=== PATIENT | male | born 1940 | race Caucasian/White ===

== ENCOUNTER 2020-10-17 05:48 | Inpatient (IN) ==
[2020-10-17] MEDS ORDERED: IOPAMIDOL 100 ML BOTTLE IV ONE (05:49)
[2020-10-17] MEDS ORDERED: IPRATROPIUM/ALBUTEROL 3 ML AMPUL.NEB NEB ONE (05:55)
[2020-10-17] MEDS ORDERED: methylPREDNISolone SOD SUCC 125 MG/2 ML VIAL IV ONE (05:55)
[2020-10-17] MEDS ORDERED: FUROSEMIDE 40 MG/4 ML VIAL IV ONE (06:09)
--- NOTE | 2020-10-17 06:12 | Emergency Department Note ---
HPI General Chief complaint: Shortness of Breath/Dyspnea Stated complaint: sob Time Seen by Provider: 10/17/20 05:55 Source: patient Mode of arrival: ambulatory Limitations: no limitations History of Present Illness HPI Narrative: Narrative: 80-year-old male presents the emergency department with shortness of breath. He does have history of CHF as well as COPD and obstructive sleep apnea. He said over the last 2 days he had worsening shortness of breath whenever he seems to not be L to catch his breath. He says he does not normally use oxygen at home and has never had before. She does have inhalers at home that he states had no fevers chills nausea vomiting chest pain. Says just the shortness of breath the only thing bothering him. He does not believe to have fever. They recently received their second Covid vaccine approximately 3 days ago. Otherwise there is been no other symptoms. He has no pain at this time. They have noticed increased swelling in his lower limbs as well. Related Data Home Medications Medication Instructions Recorded Confirmed aspirin 81 mg tablet,delayed 81 mg PO QDAY 08/08/17 07/06/20 release multivitamin 1 tab PO QAM 08/08/17 07/06/20 omeprazole 20 mg capsule,delayed 20 mg PO QDAY 08/08/17 07/06/20 release acetaminophen 500 mg tablet 500 mg PO Q4H PRN 04/11/19 07/06/20 albuterol sulfate 90 mcg/actuation 2 puff INHALATION QID PRN 04/11/19 07/06/20 aerosol inhaler ascorbic acid (vitamin C) 1,000 mg 1 g PO QAM tab 04/11/19 07/06/20 tablet formoterol fumarate 20 mcg/2 mL 2 ml INHALATION BID ml 04/11/19 07/06/20 solution for nebulization metoprolol tartrate 100 mg tablet 100 mg PO BID 04/11/19 07/06/20 nitroglycerin 0.4 mg sublingual 0.4 mg SUBLINGUAL Q5-15M PRN 04/11/19 07/06/20 tablet omega-3 fatty acids 1,000 mg 1,000 mg PO QDAY 04/11/19 07/06/20 capsule amlodipine 10 mg tablet 10 mg PO QDAY tab 01/02/20 07/06/20 atorvastatin 20 mg tablet 20 mg PO QDAY tab 01/02/20 07/06/20 budesonide-formoterol HFA 160 2 puff INHALATION BID 01/02/20 07/06/20 mcg-4.5 mcg/actuation aerosol inhaler doxazosin 2 mg tablet 2 mg PO QHS 01/02/20 07/06/20 furosemide 40 mg tablet 40 mg PO BID 01/02/20 07/06/20 Previous Rx's Medication Instructions Recorded fluticasone propionate 50 1 - 2 spray INTRANASAL QDAY #54.6 01/14/20 mcg/actuation nasal ml spray,suspension losartan 100 mg tablet 100 mg PO QDAY #90 tab 07/06/20 Allergies Allergy/AdvReac Type Severity Reaction Status Date / Time No Known Drug Allergies Allergy Verified 07/06/20 13:31 Review of Systems ROS ROS Narrative: Narrative: All systems ED: reviewed and negative except as stated. [facility] Narrative Patient History Narrative: Narrative: Medical/Surgical/Family History All Active Problems (Updated 10/17/20 @ 09:02 by Toro Wright DO) Acute exacerbation of CHF (congestive heart failure) (Acute) Acute exacerbation of chronic obstructive pulmonary disease (Acute) Abdominal pain (Acute) Nausea (Acute) Medicare annual wellness visit, subsequent (Acute) Prediabetes (Chronic) Former smoker (Chronic) JOSIE (obstructive sleep apnea) (Chronic) Morbid obesity (Chronic) Erectile dysfunction (Chronic) History of bone marrow transplant (Chronic ~2003) CHF (congestive heart failure) (Chronic) Myelodysplastic syndrome (Chronic) Myelodysplastic disease (Chronic) Hypertension (Chronic) History of colonoscopy (Chronic 02/21/18) Avghd-zydawr-bpcm disease (Chronic) COPD (chronic obstructive pulmonary disease) (Chronic) Stenosis of coronary artery stent, subsequent encounter (Chronic) Hyperlipidemia (Chronic) Diverticulosis of colon (without mention of hemorrhage) (Chronic) Colonic polyp (Chronic) Arthritis (Chronic) Insomnia (Chronic) Medical History (Updated 10/17/20 @ 09:02 by Toro Wright DO) Abscess, scrotum Acute coronary syndrome Arthritis CHF (congestive heart failure) Colonic polyp COPD (chronic obstructive pulmonary disease) Cyst of scrotum Diverticulosis of colon (without mention of hemorrhage) Drug reaction Encounter for long-term (current) use of medications Erectile dysfunction Former smoker 56 yrs; quit 2003 Kpxud-jvrsjj-lmjl disease Hyperlipidemia Hypertension Impingement syndrome of right shoulder Insomnia Laceration with foreign body of scrotum and testes, initial encounter Morbid obesity Myelodysplastic disease Myelodysplastic syndrome JOSIE (obstructive sleep apnea) presumptive - high likelihood based on obesity, describes gasping at night, some snoring. Prediabetes Stenosis of coronary artery stent, subsequent encounter Surgical History H/O excision of dermoid cyst Scrotal H/O heart artery stent (~07/2017) History of biopsy Heart biopsy History of bone marrow transplant (~2003) History of colonoscopy (02/21/18) History of hernia repair History of lung biopsy History of surgery stent in chest for drainage Hx of tonsillectomy S/P appendectomy S/P knee replacement Family History Other Cancer Diabetes Heart attack Hypertension No pertinent family history Social History Smoking Status: Former smoker Alcohol Intake Frequency: does not drink Substance Use: does not use Exam Narrative Narrative: Narrative: Vital signs noted General: Awake. Alert. No distress. Skin: Warm. Dry. No rash. HEENT: NCAT. PERRL. EOMI. No conjunctivitis. No nystagmus. No pharyngitis. Membranes moist. No otitis. No rhinitis. Neck: No PTP. Good ROM. No meningeal signs. No stridor. No thyromegaly. No JVD. Cardiovascular: RRR. No murmur. No rubs. No gallops. Respiratory: No respiratory distress. Mild wheezes worse in the bases bilaterally. No rhonchi. No rales. Gastrointestinal: Abdomen soft. No tenderness. No distention. Normal bowel sounds. No palpable organomegaly or masses. Back: No deformity. No CVAT. Musculoskeletal: No tenderness. 2+ pretibial pitting edema bilaterally. No erythema. No edema. Good peripheral pulses x 4 Lymphatic: No palpable adenopathy. Neurological: No focal neurological deficits observed. General Limitations: no limitations Course Vital Signs Vital signs: Vital Signs Temperature 96.9 F L 10/17/20 05:49 Pulse Rate 107 H 10/17/20 05:49 Respiratory Rate 24 H 10/17/20 05:49 Blood Pressure 175/104 10/17/20 05:49 Pulse Oximetry (%) 86 L 10/17/20 05:49 Temperature 96.9 F L 10/17/20 05:49 Pulse Rate 97 H 10/17/20 08:31 Respiratory Rate 23 H 10/17/20 08:31 Blood Pressure 132/94 10/17/20 07:46 Pulse Oximetry (%) 99 10/17/20 08:31 MDM MDM Narrative Medical decision making narrative: Narrative: Patient seems to be possibly in COPD and CHF exacerbation. We will going give him 125 of Solu-Medrol for inflammation for the COPD as well as DuoNeb's to help with his breathing. Also given Lasix to help diurese him. We will get basic labs. Will get D-dimer as he was tachycardic and hypoxic to rule out pulmonary embolism. EKG was done shows A. fib which is chronic for him otherwise no other signs of ischemia. Patient did have an elevated BNP of 3000. Troponin negative. No white count procalcitonin was negative. D-dimer was elevated to 100 so I went ahead and did order a CT angiogram of the chest which showed pleural effusions but no signs of pulmonary embolism or signs of pneumonia. The did not treat patient with antibiotics. He did get up one time and desatted down to 80 became more short of breath after that with the CHF exacerbation side to start him on BiPAP. Since being on BiPAP patient has been doing much better. He responded well to it. Due to being on BiPAP as well as receiving the Lasix including the COPD exacerbation I think patient does need to be admitted for further evaluation. Think this is more of a CHF exacerbation more than a COPD exacerbation I think he just needs a lot of diuresis and possibly medication changes. Patient needs to be admitted. I will speak with the hospitalist Dr. Be to accept the patient. Patient is going to be admitted in fair condition. Total critical care time of 32 min including performance of history and physical exam, review of results, re-examinations, time spent documenting, night order selector, review of old records, discussions with patient and family, discussions with software consultant(s), discussion with admitting physician, completion of admission/transfer paperwork. This does not include time for any separately documented procedures. Lab Data Result diagrams: 10/17/20 06:00 10/17/20 06:00 Labs: Lab Results 10/17/20 10/17/20 10/17/20 Range/Units 06:00 06:00 06:00 WBC 7.5 (4.5-11.0) K/mcL RBC 4.77 (4.50-5.90) M/mcL Hgb 14.7 (13.5-16.5) g/dL Hct 46.2 (41.0-55.0) % MCV 96.9 (80.0-100.0) fL MCH 30.8 (26.0-34.0) pg MCHC 31.8 (31.0-36.0) g/dL RDW 13.1 (11.5-14.5) % Plt Count 160 (140-440) K/mcL MPV 9.7 (7.4-10.4) fL Neut % (Auto) 64.0 (38.0-78.0) % Lymph % (Auto) 24.7 (15.0-49.0) % Elbert % (Auto) 9.3 (1.0-12.0) % Eos % (Auto) 1.2 (0.0-7.0) % Baso % (Auto) 0.8 (0.0-2.0) % Lymph # (Auto) 1.86 (1.50-4.80) K/mcL Elbert # (Auto) 0.70 (0.10-0.90) K/mcL Eos # (Auto) 0.09 (0.00-0.70) K/mcL Baso # (Auto) 0.06 (0.00-0.20) K/mcL Absolute Neutrophils 4.81 (1.80-8.00) K/mcL PT 13.7 (11.9-14.5) sec INR 1.0 (0.9-1.1) D-Dimer 1.19 H (0.27-0.50) ug/mL Sodium 139 (133-145) mmol/L Potassium 4.2 (3.3-5.1) mmol/L Chloride 106 (96-108) mmol/L Carbon Dioxide 25 (22-30) mmol/L Anion Gap 8.0 (8.0-16.0) BUN 14 (8-23) mg/dL Creatinine 0.9 (0.7-1.2) mg/dL GFR Calculation 81 Glucose 155 H (70-105) mg/dL Calcium 8.5 L (8.6-10.4) mg/dL Total Bilirubin 1.7 H (0.1-1.0) mg/dL AST 15 (<40) U/L ALT 14 (<40) U/L Alkaline Phosphatase 96 (39-117) U/L Troponin T (<0.03) ng/mL NT-Pro-B Natriuret Pep 3003.0 H (<450.0) pg/mL Total Protein 5.8 L (5.9-8.4) gm/dL Albumin 3.5 (3.2-5.2) gm/dL Globulin 2.3 (2.2-3.7) gm/dL Albumin/Globulin Ratio 1.5 (1.0-2.3) Procalcitonin (<0.10) ng/mL 10/17/20 10/17/20 Range/Units 06:00 06:00 WBC (4.5-11.0) K/mcL RBC (4.50-5.90) M/mcL Hgb (13.5-16.5) g/dL Hct (41.0-55.0) % MCV (80.0-100.0) fL MCH (26.0-34.0) pg MCHC (31.0-36.0) g/dL RDW (11.5-14.5) % Plt Count (140-440) K/mcL MPV (7.4-10.4) fL Neut % (Auto) (38.0-78.0) % Lymph % (Auto) (15.0-49.0) % Elbert % (Auto) (1.0-12.0) % Eos % (Auto) (0.0-7.0) % Baso % (Auto) (0.0-2.0) % Lymph # (Auto) (1.50-4.80) K/mcL Elbert # (Auto) (0.10-0.90) K/mcL Eos # (Auto) (0.00-0.70) K/mcL Baso # (Auto) (0.00-0.20) K/mcL Absolute Neutrophils (1.80-8.00) K/mcL PT (11.9-14.5) sec INR (0.9-1.1) D-Dimer (0.27-0.50) ug/mL Sodium (133-145) mmol/L Potassium (3.3-5.1) mmol/L Chloride (96-108) mmol/L Carbon Dioxide (22-30) mmol/L Anion Gap (8.0-16.0) BUN (8-23) mg/dL Creatinine (0.7-1.2) mg/dL GFR Calculation Glucose (70-105) mg/dL Calcium (8.6-10.4) mg/dL Total Bilirubin (0.1-1.0) mg/dL AST (<40) U/L ALT (<40) U/L Alkaline Phosphatase (39-117) U/L Troponin T < 0.01 (<0.03) ng/mL NT-Pro-B Natriuret Pep (<450.0) pg/mL Total Protein (5.9-8.4) gm/dL Albumin (3.2-5.2) gm/dL Globulin (2.2-3.7) gm/dL Albumin/Globulin Ratio (1.0-2.3) Procalcitonin 0.07 (<0.10) ng/mL ED POC Tests ED POC Tests: MIESHA - SARS Antigen Negative EKG Data EKG #1: EKG results narrative: EKG done at 0 556 interpreted by myself shows A. fib at a rate of 95, QRS 102, QTc 430. There is no acute ST changes no acute T wave changes no other signs of ischemia. No signs of hypertrophy, heart strain, heart block. No WPW/Brugada/HOCM. Impression is A. fib with no ischemia. Discharge Plan Patient/Caregiver Discharge Instructions Pt seen by TALENT ACQUISITION PROGRAM MANAGER/PA only: No Clinical Impression: Acute exacerbation of CHF (congestive heart failure), Acute exacerbation of chronic obstructive pulmonary disease Patient Disposition: Xfer As Inpt ([facility]) Condition: Good Follow up with: Reynaldo Castañeda MD [Primary Care Provider] - Prescriptions: No Action budesonide-formoterol 160-4.5 mcg/actuation HFA aerosol inhaler 2 puff INHALATION BID RF: 0 doxazosin 2 mg tablet 2 mg PO QHS RF: 0 furosemide 40 mg tablet 40 mg PO BID RF: 0 losartan 100 mg tablet 100 mg PO QDAY Qty: 90 RF: 4 fluticasone propionate 50 mcg/actuation spray,suspension 1 - 2 spray INTRANASAL QDAY Qty: 54.6 RF: 4 metoprolol tartrate 100 mg tablet 100 mg PO BID RF: 0 Perforomist 20 mcg/2 mL solution for nebulization 2 ml INHALATION BID RF: 0 omega-3 fatty acids 1,000 mg capsule 1,000 mg PO QDAY RF: 0 acetaminophen [Tylenol Extra Strength] 500 mg tablet 500 mg PO Q4H PRN (Reason: Pain) RF: 0 ascorbic acid (vitamin C) 1,000 mg tablet 1 g PO QAM RF: 0 nitroglycerin [Nitrostat] 0.4 mg tablet, sublingual 0.4 mg SUBLINGUAL Q5-15M PRN (Reason: Chest Pain) RF: 0 albuterol sulfate [ProAir HFA] 90 mcg/actuation HFA aerosol inhaler 2 puff INHALATION QID PRN (Reason: Shortness Of Breath) RF: 0 atorvastatin 20 mg tablet 20 mg PO QDAY RF: 0 omeprazole 20 mg capsule,delayed release(DR/EC) 20 mg PO QDAY RF: 0 multivitamin [Daily Multi-Vitamin] tablet 1 tab PO QAM RF: 0 aspirin 81 mg tablet,delayed release (DR/EC) 81 mg PO QDAY RF: 0 amlodipine 10 mg tablet 10 mg PO QDAY RF: 0
[2020-10-17 06:35] LABS: Basophils # (Auto) 0.06 K/mcL (0.00-0.20); Basophils % (Auto) 0.8 % (0.0-2.0); Eosinophils # (Auto) 0.09 K/mcL (0.00-0.70); Eosinophils % (Auto) 1.2 % (0.0-7.0); Hematocrit 46.2 % (41.0-55.0); Hemoglobin 14.7 g/dL (13.5-16.5); Lymphocytes # (Auto) 1.86 K/mcL (1.50-4.80); Lymphocytes % (Auto) 24.7 % (15.0-49.0); Mean Cell Volume 96.9 fL (80.0-100.0); Mean Corpuscular HGB Conc 31.8 g/dL (31.0-36.0); Mean Platelet Volume 9.7 fL (7.4-10.4); Monocytes % (Auto) 9.3 % (1.0-12.0); Platelet Count 160 K/mcL (140-440); RBC 4.77 M/mcL (4.50-5.90); Red Cell Distribution Width 13.1 % (11.5-14.5); WBC 7.5 K/mcL (4.5-11.0)
--- NOTE | 2020-10-17 06:38 | XRay Report ---
CLINICAL INFORMATION: dyspnea COMPARISON: 02/20/2009 FINDINGS: The heart is moderately enlarged - increased from previous exam. Mediastinum is unremarkable. The pulmonary vessels are mildly distended. No edema evident. Small patchy bibasilar infiltrates have developed since prior exam. Small right pleural effusion noted IMPRESSION: Small patchy bibasilar infiltrates. Consider aspiration Mild underlying CHF or volume overload Interpreted and Authenticated by: Akash Hart 10/17/20
[2020-10-17 06:55] LABS: Prothrombin Time 13.7 sec (11.9-14.5)
[2020-10-17 07:00] LABS: ALT/SGPT 14 U/L (<40); AST/SGOT 15 U/L (<40); Albumin 3.5 gm/dL (3.2-5.2); Albumin/Globulin Ratio 1.5 (1.0-2.3); Alkaline Phosphatase 96 U/L (39-117); Bilirubin,Total 1.7 mg/dL (0.1-1.0); Blood Urea Nitrogen 14 mg/dL (8-23); Calcium 8.5 mg/dL (8.6-10.4); Carbon Dioxide 25 mmol/L (22-30); Chloride 106 mmol/L (96-108); Globulin 2.3 gm/dL (2.2-3.7); Glomerular Filtration Rate 81; Glucose 155 mg/dL (70-105)
[2020-10-17] MEDS ORDERED: ACETAMINOPHEN 325 MG TABLET PO PRN (11:15)
[2020-10-17] MEDS ORDERED: POTASSIUM CHLORIDE 20 MEQ TABLET PO PRN ×2 (11:15)
[2020-10-17] MEDS ORDERED: SENNOSIDES 1 TABLET PO PRN (11:15)
[2020-10-17] MEDS ORDERED: ONDANSETRON 4 MG/2 ML VIAL IV PRN (11:15)
[2020-10-17] MEDS ORDERED: MAGNESIUM SULFATE 2 GM/50 ML BAG IV PRN (11:15)
[2020-10-17] MEDS ORDERED: IPRATROPIUM/ALBUTEROL 3 ML AMPUL.NEB NEB PRN (11:15)
[2020-10-17] MEDS ORDERED: POTASSIUM CHLORIDE 40 MEQ in DEXTROSE 5% IN WATER 500 ML IV PRN (11:15)
--- NOTE | 2020-10-17 11:15 | Internal Med History&Physical ---
HPI History of Present Illness Patient information: Note initiated : 10/17/20 at 11:06 am Service Date, if different from initiated Date: [] Patient: James Mandujano a 80 y/o M admitted on 10/17/20 for sob. Chief Complaint: [] History of present illness: Mr. Mandujano is a 80 year old M Who presents the ED with shortness of breath. States has had shortness of breath issues for a year. Has history of COPD and CHF but has never been on any home oxygen. He says he got the Covid shot the second on Sunday or . felt fine. Sunday he had a headache and some body aches but was doing okay until the evening when he became short of breath. Occasionally become short of breath night while laying in bed. Feels a little better Sunday and then Sunday night short of breath again. Woke up in the middle night got up but went back to bed and then got up again watch TV and was continued be short of breath and about 5 asked his to bring him into the ED. Complains of orthopnea. He had increased swelling in his legs in the past couple weeks. Denies any cough or chest pain. Denies fever chills. Work-up in the ED revealed CHF. Chest x-ray with pulmonary edema. He was given Lasix with 1500 cc output. Put on the BiPAP which relieved his respiratory distress . Review of Systems: Pertinent positives above. Denies headache/fever/chills/nausea/vomiting/chest or abdominal pain/cough/diarrhea. Remaining 10 point review of system reviewed negative PFSH PFSH All Active Problems (Updated 10/17/20 @ 09:02 by Toro Wright DO) Acute exacerbation of CHF (congestive heart failure) (Acute) Acute exacerbation of chronic obstructive pulmonary disease (Acute) Abdominal pain (Acute) Nausea (Acute) Medicare annual wellness visit, subsequent (Acute) Prediabetes (Chronic) Former smoker (Chronic) JOSIE (obstructive sleep apnea) (Chronic) Morbid obesity (Chronic) Erectile dysfunction (Chronic) History of bone marrow transplant (Chronic ~2003) CHF (congestive heart failure) (Chronic) Myelodysplastic syndrome (Chronic) Myelodysplastic disease (Chronic) Hypertension (Chronic) History of colonoscopy (Chronic 02/21/18) Vsjdr-blazth-tqiz disease (Chronic) COPD (chronic obstructive pulmonary disease) (Chronic) Stenosis of coronary artery stent, subsequent encounter (Chronic) Hyperlipidemia (Chronic) Diverticulosis of colon (without mention of hemorrhage) (Chronic) Colonic polyp (Chronic) Arthritis (Chronic) Insomnia (Chronic) Medical History (Updated 10/17/20 @ 09:02 by Toro Wright DO) Abscess, scrotum Acute coronary syndrome Arthritis CHF (congestive heart failure) Colonic polyp COPD (chronic obstructive pulmonary disease) Cyst of scrotum Diverticulosis of colon (without mention of hemorrhage) Drug reaction Encounter for long-term (current) use of medications Erectile dysfunction Former smoker 56 yrs; quit 2003 Tdvzv-ojgujq-xoip disease Hyperlipidemia Hypertension Impingement syndrome of right shoulder Insomnia Laceration with foreign body of scrotum and testes, initial encounter Morbid obesity Myelodysplastic disease Myelodysplastic syndrome JOSIE (obstructive sleep apnea) presumptive - high likelihood based on obesity, describes gasping at night, some snoring. Prediabetes Stenosis of coronary artery stent, subsequent encounter Surgical History H/O excision of dermoid cyst Scrotal H/O heart artery stent (~07/2017) History of biopsy Heart biopsy History of bone marrow transplant (~2003) History of colonoscopy (02/21/18) History of hernia repair History of lung biopsy History of surgery stent in chest for drainage Hx of tonsillectomy S/P appendectomy S/P knee replacement Family History Other Cancer Diabetes Heart attack Hypertension No pertinent family history Social History household members: spouse marital status: physical activity: none smoking status: Former smoker alcohol intake frequency: does not drink substance use type: does not use seatbelt use: always MEDS/ALLERGIES Home Medications and Allergies Home Medications Medication Instructions Recorded Confirmed Type aspirin 81 mg tablet,delayed 81 mg PO QDAY 08/08/17 07/06/20 History release multivitamin 1 tab PO QAM 08/08/17 07/06/20 History omeprazole 20 mg capsule,delayed 20 mg PO QDAY 08/08/17 07/06/20 History release acetaminophen 500 mg tablet 500 mg PO Q4H PRN 04/11/19 07/06/20 History albuterol sulfate 90 mcg/actuation 2 puff INHALATION QID PRN 04/11/19 07/06/20 History aerosol inhaler ascorbic acid (vitamin C) 1,000 mg 1 g PO QAM tab 04/11/19 07/06/20 History tablet formoterol fumarate 20 mcg/2 mL 2 ml INHALATION BID ml 04/11/19 07/06/20 History solution for nebulization metoprolol tartrate 100 mg tablet 100 mg PO BID 04/11/19 07/06/20 History nitroglycerin 0.4 mg sublingual 0.4 mg SUBLINGUAL Q5-15M PRN 04/11/19 07/06/20 History tablet omega-3 fatty acids 1,000 mg 1,000 mg PO QDAY 04/11/19 07/06/20 History capsule amlodipine 10 mg tablet 10 mg PO QDAY tab 01/02/20 07/06/20 History atorvastatin 20 mg tablet 20 mg PO QDAY tab 01/02/20 07/06/20 History budesonide-formoterol HFA 160 2 puff INHALATION BID 01/02/20 07/06/20 History mcg-4.5 mcg/actuation aerosol inhaler doxazosin 2 mg tablet 2 mg PO QHS 01/02/20 07/06/20 History furosemide 40 mg tablet 40 mg PO BID 01/02/20 07/06/20 History fluticasone propionate 50 1 - 2 spray INTRANASAL QDAY #54.6 01/14/20 07/06/20 Rx mcg/actuation nasal ml spray,suspension losartan 100 mg tablet 100 mg PO QDAY #90 tab 07/06/20 07/06/20 Rx Allergies Allergy/AdvReac Type Severity Reaction Status Date / Time No Known Drug Allergies Allergy Verified 07/06/20 13:31 EXAM Constitutional Vitals: Temp Pulse Resp BP Pulse Ox 98.1 F 108 H 17 157/92 100 10/17/20 10:34 10/17/20 10:35 10/17/20 10:35 10/17/20 10:34 10/17/20 10:35 Exam: General: Alert, Awake, No acute Distress, obese Eyes/N/T: EOMI, PERRL, Head/Neck: neck supple, normocephalic atraumatic, ABD present CV: RRR, 1/6 SM, normal s1/s2 Pulm: diminished b/l, no wheezing Abd: soft, nontender, +BS x4 Ext: no clubbing/cyanosis, 3+ b/l LE edema Neuro: Alert, no focal deficits, moves all extremities, CN 2-12 grossly intact, symmetrical strength b/l upper/lower, sensations intact b/l upper/lower Skin: warm/dry DATA Data Completed and Pending Labs: Labs from last 24 hours 10/17/20 10/17/20 10/17/20 06:00 06:00 06:00 WBC RBC Hgb Hct MCV MCH MCHC RDW Plt Count MPV Neut % (Auto) Lymph % (Auto) [place] % (Auto) Eos % (Auto) Baso % (Auto) Lymph # (Auto) [place] # (Auto) Eos # (Auto) Baso # (Auto) Absolute Neutrophils PT INR D-Dimer Sodium 139 Potassium 4.2 Chloride 106 Carbon Dioxide 25 Anion Gap 8.0 BUN 14 Creatinine 0.9 GFR Calculation 81 Glucose 155 H Calcium 8.5 L Total Bilirubin 1.7 H AST 15 ALT 14 Alkaline Phosphatase 96 Troponin T < 0.01 NT-Pro-B Natriuret Pep 3003.0 H Total Protein 5.8 L Albumin 3.5 Globulin 2.3 Albumin/Globulin Ratio 1.5 Procalcitonin 0.07 10/17/20 10/17/20 06:00 06:00 WBC 7.5 RBC 4.77 Hgb 14.7 Hct 46.2 MCV 96.9 MCH 30.8 MCHC 31.8 RDW 13.1 Plt Count 160 MPV 9.7 Neut % (Auto) 64.0 Lymph % (Auto) 24.7 [place] % (Auto) 9.3 Eos % (Auto) 1.2 Baso % (Auto) 0.8 Lymph # (Auto) 1.86 [place] # (Auto) 0.70 Eos # (Auto) 0.09 Baso # (Auto) 0.06 Absolute Neutrophils 4.81 PT 13.7 INR 1.0 D-Dimer 1.19 H Sodium Potassium Chloride Carbon Dioxide Anion Gap BUN Creatinine GFR Calculation Glucose Calcium Total Bilirubin AST ALT Alkaline Phosphatase Troponin T NT-Pro-B Natriuret Pep Total Protein Albumin Globulin Albumin/Globulin Ratio Procalcitonin A/P Narrative A/P Narrative: A: *Acute on chronic diastolic CHF w/pulm edema: -trop neg *Acute hypoxic respiratory failure: -placed on bipap in ED *COPD (not on home oxygen) *JOSIE: Not on CPAP *CAD w/stent: is on asa/statin/bb *HTN: *Obesity: * P: -IV diuresis -wean off bipap, wean O2 as able -updated echo -monitor i/o weights -cont ARB/BB -cont asa/statin -IS -leg wraps/elevate -pt/ot -Follow-up with pulmonology for sleep study and COPD -ppx: lovenox full code Time Spent With Patient Time: Total time spent is greater than 50% in coordination of care (as documented) at patient's floor/unit and/or counseling patient:
--- NOTE | 2020-10-17 13:28 | Cat Scan Report ---
CLINICAL INFORMATION: Chest pain, d-dimer with dyspnea COMPARISON: None. TECHNIQUE: ml of Isovue-370 were injected intravenously. Using SmartPrep to maximize pulmonary artery opacification, .625mm helical slices were obtained from the lung apices through the lung bases. Following reconstruction, 2.5 mm sagittal, coronal, and axial reformations were processed. The exam was reviewed at mediastinal, lung, and bone windows. The exam was performed using radiation dose optimization techniques including, but not limited to, automated exposure control, adjustment of the mA and/or kV according to patient size and use of iterative reconstruction technique. FINDINGS: Mediastinal windows show the pulmonary arteries are normal caliber and well-opacified: no evidence of embolus. Thoracic aorta is normal in diameter. Heart is moderately enlarged with scattered fibrofatty calcific plaque in the coronary arteries. There is also small amount of calcification in the mitral and aortic valves. There are 4-5 moderately enlarged lymph nodes in the lower mediastinum including the azygos, AP window and subcarinal regions. They range up to 15 mm are almost certainly represent benign reactive lymph nodes. Small hiatal hernia is noted. The thyroid is unremarkable. Pulmonary parenchymal windows show mild centrilobular emphysema featuring chronic bronchitis and scattered bullae in the upper lobes. Moderate patchy vague infiltrates are seen in the posterior lower lobes with small effusions. Bones and soft tissues the chest wall are unremarkable. Images of the upper abdomen show no abnormality. IMPRESSION: 1. No evidence of pulmonary embolus. 2. Moderate patchy bilateral lower lobe infiltrates. Small bilateral pleural effusions 62Consider aspiration 3. Small hiatal hernia. 4. Mild adenopathy lower mediastinum almost certainly represent benign reactive lymph nodes Interpreted and Authenticated by: Akash Hart 10/17/20
[2020-10-17] MEDS: FUROSEMIDE 40 MG/4 ML VIAL IV SCH ×2 (14:17→22:49)
[2020-10-17] MEDS: 0.9 % SODIUM CHLORIDE 10 ML SYRINGE IV SCH ×2 (14:17→22:49)
[2020-10-17] MEDS ORDERED: METOPROLOL TARTRATE 50 MG TABLET PO ONE (14:25)
[2020-10-17] MEDS ORDERED: NITROGLYCERIN 0.4 MG TAB.SUBL SL PRN (18:29)
[2020-10-17] MEDS: DOCUSATE SODIUM 100 MG CAPSULE PO SCH (20:59)
[2020-10-17] MEDS ORDERED: DOXAZOSIN 1 MG TABLET PO SCH (21:00)
[2020-10-17] MEDS ORDERED: ENOXAPARIN 40 MG/0.4 ML SYRINGE SQ SCH (21:00)
[2020-10-17] MEDS: METOPROLOL TARTRATE 50 MG TABLET PO SCH (21:15)
[2020-10-17] MEDS: BUDESONIDE FORMOTEROL INH SCH (21:16)
[2020-10-18] MEDS: FUROSEMIDE 40 MG/4 ML VIAL IV SCH ×3 (05:34→21:34)
[2020-10-18] MEDS: 0.9 % SODIUM CHLORIDE 10 ML SYRINGE IV SCH ×3 (05:34→21:34)
[2020-10-18] MEDS ORDERED: OMEPRAZOLE 20 MG CAPSULE PO SCH (07:30)
[2020-10-18 08:03] LABS: Thyroid Stimulating Hormone 0.55 uIU/mL (0.27-5.01)
--- NOTE | 2020-10-18 08:12 | Internal Med Progress Note ---
SUBJECTIVE Subjective Patient information: Note initiated : 10/18/20 at 8:08 am Service Date, if different from initiated Date: [] Patient: James Mandujano 80 y/o M admitted on 10/17/20 for sob. Chief Complaint: [] Interval history: History of present illness: Mr. Mandujano is a 80 year old M Who presents the ED with shortness of breath. States has had shortness of breath issues for a year. Has history of COPD and CHF but has never been on any home oxygen. He says he got the Covid shot the second on Sunday or . felt fine. Sunday he had a headache and some body aches but was doing okay until the evening when he became short of breath. Occasionally become short of breath night while laying in bed. Feels a little better Sunday and then Sunday night short of breath again. Woke up in the middle night got up but went back to bed and then got up again watch TV and was continued be short of breath and about 5 asked his to bring him into the ED. Complains of orthopnea. He had increased swelling in his legs in the past couple weeks. Denies any cough or chest pain. Denies fever chills. Work-up in the ED revealed CHF. Chest x-ray with pulmonary edema. He was given Lasix with 1500 cc output. Put on the BiPAP which relieved his respiratory distress . 10/18 Doing well. Breathing much better. Review of Systems: denies headache/fever/chills/nausea/vomiting/chest or abdominal pain//diarrhea. Otherwise see above. Constitutional Vitals: Vital Signs Temp Pulse Resp BP Pulse Ox 98.1 F 83 24 H 134/62 93 10/18/20 00:02 10/18/20 06:01 10/18/20 07:01 10/18/20 07:01 10/18/20 07:01 Period Temp Pulse Resp BP Sys/[place] Pulse Ox Last 24 Hr 98.1 F-99.2 F 77-123 17-33 126-167/54-134 93-100 Intake and Output 10/17/20 10/18/20 10/18/20 21:59 05:59 13:59 Intake Total 700 Output Total 1599 2049 Balance -1600 -1350 Weight 138.799 kg Intake & Output: Intake & Output 10/17/20 10/18/20 10/18/20 21:59 05:59 13:59 Intake Total 700 Output Total 1600 2049 Balance -1600 -1350 Weight 138.799 kg Intake: Oral 700 Output: Urine Catheter Amount 1300 2049 Void Amount 300 Other: Meal Snack Percent of Meal Consumed 100% Feeding Ability Independent Urine Appearance Clear Clear Uretheral ([place]) Clear Clear Urine Color Bright Yellow Bright Yellow Uretheral ([place]) Pale Pale Urine Odor Normal Normal Stool Size Large Stool Color Brown Stool Consistency Soft Formed Exam: General: Alert, Awake, No acute Distress, obese Eyes/N/T: EOMI, , Head/Neck: neck supple, CV: RRR, 1/6 SM, Pulm: diminished b/l,mild b/l rales, no wheezing Abd: soft, nontender, +BS x4 Ext: no clubbing/cyanosis, 2+ b/l LE edema Neuro: Alert, no focal deficits, moves all extremities, Skin: warm/dry OBJ DATA Labs CBC & Chem 7: 10/17/20 06:00 10/17/20 06:00 Labs: Abnormal Lab Results 10/17/20 10/17/20 06:00 06:00 D-Dimer 1.19 H Glucose 155 H Calcium 8.5 L Total Bilirubin 1.7 H NT-Pro-B Natriuret Pep 3003.0 H Total Protein 5.8 L Meds: Medications Acetaminophen (Acetaminophen 325 Mg Tablet) 650 mg PO Q6HP PRN PRN Reason: PAIN/FEVER > 101 Albuterol/Ipratropium (Ipratropium/Albuterol 3 Ml Ampul.Neb) 3 ml NEB Q4HP PRN PRN Reason: Shortness Of Breath Aspirin (Aspirin 81 Mg Tab.Chew) 81 mg PO QDAY [facility] Atorvastatin Calcium (Atorvastatin 20 Mg Tablet) 20 mg PO QDAY [facility] Docusate Sodium (Docusate Sodium 100 Mg Capsule) 100 mg PO BID [facility] Last Admin: 10/17/20 20:59 Dose: Not Given Documented by: Doxazosin Mesylate (Doxazosin 1 Mg Tablet) 2 mg PO QHS [facility] Last Admin: 10/17/20 21:15 Dose: 2 mg Documented by: Enoxaparin Sodium (Enoxaparin 30 Mg/0.3 Ml Syringe) 30 mg SQ BID [facility] Furosemide (Furosemide 40 Mg/4 Ml Vial) 40 mg IV Q8 [facility] Last Admin: 10/18/20 05:34 Dose: 40 mg Documented by: Potassium Chloride 40 meq/ (Dextrose) 520 mls @ 130 mls/hr IV UD PRN PRN Reason: Potassium < 3 Magnesium Sulfate (Magnesium Sulfate) 2 gm in 50 mls @ 50 mls/hr IV UD PRN PRN Reason: Magnesium </= 1.6 Losartan Potassium (Losartan 50 Mg Tablet) 100 mg PO QDAY [facility] Metoprolol Tartrate (Metoprolol Tartrate 50 Mg Tablet) 100 mg PO BID [facility] Last Admin: 10/17/20 21:15 Dose: 100 mg Documented by: Nitroglycerin (Nitroglycerin 0.4 Mg Tab.Subl) 0.4 mg SL Q5M PRN PRN Reason: Chest Pain Omeprazole (Omeprazole 20 Mg Capsule) 20 mg PO QAMAC [facility] Last Admin: 10/18/20 08:01 Dose: 20 mg Documented by: Ondansetron HCl (Ondansetron 4 Mg/2 Ml Vial) 4 mg IV Q4HP PRN PRN Reason: Nausea And Vomiting Budesonide- Formoterol 160-4.5 Mcg Inh 2 dose INH BID [facility] Last Admin: 10/17/20 21:16 Dose: Not Given Documented by: Potassium Chloride (Potassium Chloride 20 Meq Tablet) 40 meq PO UD PRN PRN Reason: Potssium is 3-3.5 Potassium Chloride (Potassium Chloride 20 Meq Tablet) 40 meq PO UD PRN PRN Reason: Potassium < 3 Senna (Sennosides 1 Tablet) 2 tab PO DAILYP PRN PRN Reason: Constipation Sodium Chloride (0.9 % Sodium Chloride 10 Ml Syringe) 10 ml IV Q8 [facility] Last Admin: 10/18/20 05:34 Dose: 10 ml Documented by: A/P Narrative A/P Narrative: A: *Acute on chronic diastolic CHF w/pulm edema: -trop neg -good UOP *Acute hypoxic respiratory failure: -placed on bipap in ED, now on room air *COPD (not on home oxygen) *JOSIE: Not on CPAP *CAD w/stent: is on asa/statin/bb *HTN: *Obesity: P: -IV diuresis to PO in AM -updated echo -monitor i/o weights -cont ARB/BB -cont asa/statin -IS -leg wraps/elevate -pt/ot -Follow-up with pulmonology for sleep study and COPD -ppx: lovenox full code Time Spent With Patient Time: Total time spent is greater than 50% in coordination of care (as documented) at patient's floor/unit and/or counseling patient:
[2020-10-18] MEDS: DOCUSATE SODIUM 100 MG CAPSULE PO SCH ×2 (08:27→21:43)
[2020-10-18] MEDS: METOPROLOL TARTRATE 50 MG TABLET PO SCH ×2 (08:32→21:31)
[2020-10-18] MEDS: BUDESONIDE FORMOTEROL INH SCH ×2 (08:32→21:43)
[2020-10-18] MEDS ORDERED: ENOXAPARIN 30 MG/0.3 ML SYRINGE SQ SCH (09:00)
[2020-10-18] MEDS ORDERED: ATORVASTATIN 20 MG TABLET PO SCH (09:00)
[2020-10-18] MEDS ORDERED: LOSARTAN 50 MG TABLET PO SCH (09:00)
[2020-10-18] MEDS ORDERED: ASPIRIN 81 MG TAB.CHEW PO SCH (09:00)
[2020-10-18] MEDS ORDERED: ONDANSETRON 4 MG/2 ML VIAL IV PRN (09:07)
[2020-10-18] MEDS ORDERED: NITROGLYCERIN 0.4 MG TAB.SUBL SL PRN (09:07)
[2020-10-18] MEDS ORDERED: SENNOSIDES 1 TABLET PO PRN (09:07)
[2020-10-18] MEDS ORDERED: POTASSIUM CHLORIDE 40 MEQ in DEXTROSE 5% IN WATER 500 ML IV PRN (09:07)
[2020-10-18] MEDS ORDERED: IPRATROPIUM/ALBUTEROL 3 ML AMPUL.NEB NEB PRN (09:07)
[2020-10-18] MEDS ORDERED: MAGNESIUM SULFATE 2 GM/50 ML BAG IV PRN (09:07)
[2020-10-18] MEDS ORDERED: ACETAMINOPHEN 325 MG TABLET PO PRN (09:07)
[2020-10-18] MEDS ORDERED: IOPAMIDOL 100 ML BOTTLE IV ONE (09:07)
[2020-10-18] MEDS ORDERED: POTASSIUM CHLORIDE 20 MEQ TABLET PO PRN ×2 (09:07)
[2020-10-18 09:19] LABS: ALT/SGPT 13 U/L (<40); AST/SGOT 16 U/L (<40); Albumin 3.2 gm/dL (3.2-5.2); Alkaline Phosphatase 86 U/L (39-117); Bilirubin,Direct 0.3 mg/dL (<0.3); Bilirubin,Total 0.8 mg/dL (0.1-1.0); Blood Urea Nitrogen 19 mg/dL (8-23); Calcium 8.7 mg/dL (8.6-10.4); Carbon Dioxide 31 mmol/L (22-30); Chloride 101 mmol/L (96-108); Globulin 3.1 gm/dL (2.2-3.7); Glomerular Filtration Rate 71; Glucose 164 mg/dL (70-105); Lactate Dehydrogenase 315 U/L (135-225); Phosphorous 2.7 mg/dL (2.5-4.5); Triglycerides 70 mg/dL (<150); Uric Acid 6.4 mg/dL (2.5-8.0)
[2020-10-18] MEDS ORDERED: HYDROCHLOROTHIAZIDE 25 MG TABLET PO ONE (09:22)
--- NOTE | 2020-10-18 10:35 | Discharge Summary ---
Discharge Provider Provider Patient information: Note initiated : 10/18/20 at 10:34 am Service Date, if different from initiated Date: [] Patient: James Mandujano 80 y/o M admitted on 10/17/20 for sob. Chief Complaint: [] Date of admission: 10/17/20 10:15 Discharge date: 10/19/20 Primary care physician: Reynaldo Castañeda MD Consults: 10/17/20 09:05 Consult to Physician [CONS] Stat Comment: Consulting Provider: Gaurav Be Reason For Exam: Physician to Consult Discharge Meds Discharge Medications Home Medications aspirin 81 mg tablet,delayed release 81 mg PO QDAY 08/08/17 [History Confirmed 10/17/20 Last Taken 10/24/17] multivitamin 1 tab PO QAM 08/08/17 [History Confirmed 10/17/20 Last Taken 10/24/17] omeprazole 20 mg capsule,delayed release 20 mg PO QDAY 08/08/17 [History Confirmed 10/17/20 Last Taken 10/24/17] acetaminophen 500 mg tablet 500 mg PO Q4H PRN 04/11/19 [History Confirmed 10/17/20 Last Taken Unknown] albuterol sulfate 90 mcg/actuation aerosol inhaler 2 puff INHALATION QID PRN 04/11/19 [History Confirmed 10/17/20 Last Taken Unknown] metoprolol tartrate 100 mg tablet 100 mg PO BID 04/11/19 [History Confirmed 10/17/20 Last Taken Unknown] nitroglycerin 0.4 mg sublingual tablet 0.4 mg SUBLINGUAL Q5-15M PRN 04/11/19 [History Confirmed 10/17/20 Last Taken Unknown] omega-3 fatty acids 1,000 mg capsule 1,000 mg PO QDAY 04/11/19 [History Confirmed 10/17/20 Last Taken Unknown] atorvastatin 20 mg tablet 20 mg PO QDAY tab 01/02/20 [History Confirmed 10/17/20 Last Taken Unknown] budesonide-formoterol HFA 160 mcg-4.5 mcg/actuation aerosol inhaler 2 puff INHALATION BID 01/02/20 [History Confirmed 10/17/20 Last Taken Unknown] doxazosin 2 mg tablet 2 mg PO QHS 01/02/20 [History Confirmed 10/17/20 Last Taken Unknown] furosemide 40 mg tablet 40 mg PO BID 01/02/20 [History Confirmed 10/17/20 Last Taken Unknown] fluticasone propionate 50 mcg/actuation nasal spray,suspension 1 - 2 spray INTRANASAL QDAY #54.6 ml 01/14/20 [Rx Confirmed 10/17/20 Last Taken Unknown] losartan 100 mg tablet 100 mg PO QDAY #90 tab 07/06/20 [Rx Confirmed 10/17/20 Last Taken Unknown] vitamin B complex 1 tab PO QDAY 10/17/20 [History Confirmed 10/17/20 Last Taken Unknown] amlodipine 2.5 mg PO QDAY #30 tab 10/19/20 [Rx Last Taken Unknown] COURSE Hospital Course Hospital course: History of present illness: Mr. Mandujano is a 80 year old M Who presents the ED with shortness of breath. States has had shortness of breath issues for a year. Has history of COPD and CHF but has never been on any home oxygen. He says he got the Covid shot the second on Sunday or . felt fine. Sunday he had a headache and some body aches but was doing okay until the evening when he became short of breath. Occasionally become short of breath night while laying in bed. Feels a little better Sunday and then Sunday night short of breath again. Woke up in the middle night got up but went back to bed and then got up again watch TV and was continued be short of breath and about 5 asked his to bring him into the ED. Complains of orthopnea. He had increased swelling in his legs in the past couple weeks. Denies any cough or chest pain. Denies fever chills. Work-up in the ED revealed CHF. Chest x-ray with pulmonary edema. He was given Lasix with 1500 cc output. Put on the BiPAP which relieved his respiratory distress . 3 Doing well. Breathing much better. Amlodipine held for significant peripheral edema. BP wnl w/o norvasc for now. 3 Doing well. No overnight events. Edema improving. Patient feeling better. Stable for discharge. A: *Acute on chronic diastolic CHF w/pulm edema: *Acute hypoxic respiratory failure: *COPD (not on home oxygen) *JOSIE: Not on CPAP *CAD w/stent: is on asa/statin/bb *HTN: *Obesity: Discharge diagnosis: Chronic diastolic heart failure acute hypoxic respite failure COPD obstruct Secondary discharge diagnosis: Obstructive sleep apnea CAD hypertension obesity Time Spent with Patient Time attestation: Total time spent providing and/or coordinating discharge services: Time spent: Greater than 30 minutes EXAM Constitutional Vitals: Temp Pulse Resp BP Pulse Ox 98.1 F 83 24 H 134/62 93 10/18/20 00:02 10/18/20 06:01 10/18/20 07:01 10/18/20 07:01 10/18/20 07:01 Discharge Data Data Completed and Pending Labs on day of discharge: Labs from last 24 hours 10/18/20 10/17/20 05:01 06:00 Sodium 140 Potassium 4.1 Chloride 101 Carbon Dioxide 31 H Anion Gap 8.0 BUN 19 Creatinine 1.0 GFR Calculation 71 Glucose 164 H Uric Acid 6.4 Calcium 8.7 Phosphorus 2.7 Magnesium 2.0 1.9 Total Bilirubin 0.8 Direct Bilirubin 0.3 H GGT 20 AST 16 ALT 13 Alkaline Phosphatase 86 Lactate Dehydrogenase 315 H Total Protein 6.3 Albumin 3.2 Globulin 3.1 Albumin/Globulin Ratio 1.0 Triglycerides 70 TSH 0.55 Discharge Plan Patient/Caregiver Discharge Instructions Activity: increase activity as tolerated Diet: Cardiac Activity Restrictions/Additional Instructions: Follow-up with your supervising deputy in 1 to 2 weeks. Monitor blood pressure twice daily and bring log to PCP. Amlodipine decreased for significant peripheral edema, f/u with PCP. Elevate legs in the evenings. compression stockings as tolerated Referral to see pulmonology in 1 to 2 weeks for possible sleep study and underlying COPD. Prescriptions: New amlodipine 2.5 mg tablet 2.5 mg PO QDAY Qty: 30 RF: 0 Continued budesonide-formoterol 160-4.5 mcg/actuation HFA aerosol inhaler 2 puff INHALATION BID RF: 0 doxazosin 2 mg tablet 2 mg PO QHS RF: 0 furosemide 40 mg tablet 40 mg PO BID RF: 0 losartan 100 mg tablet 100 mg PO QDAY Qty: 90 RF: 4 fluticasone propionate 50 mcg/actuation spray,suspension 1 - 2 spray INTRANASAL QDAY Qty: 54.6 RF: 4 metoprolol tartrate 100 mg tablet 100 mg PO BID RF: 0 omega-3 fatty acids 1,000 mg capsule 1,000 mg PO QDAY RF: 0 acetaminophen [Tylenol Extra Strength] 500 mg tablet 500 mg PO Q4H PRN (Reason: Pain) RF: 0 nitroglycerin [Nitrostat] 0.4 mg tablet, sublingual 0.4 mg SUBLINGUAL Q5-15M PRN (Reason: Chest Pain) RF: 0 albuterol sulfate [ProAir HFA] 90 mcg/actuation HFA aerosol inhaler 2 puff INHALATION QID PRN (Reason: Shortness Of Breath) RF: 0 atorvastatin 20 mg tablet 20 mg PO QDAY RF: 0 vitamin B complex Tablet 1 tab PO QDAY RF: 0 omeprazole 20 mg capsule,delayed release(DR/EC) 20 mg PO QDAY RF: 0 multivitamin [Daily Multi-Vitamin] tablet 1 tab PO QAM RF: 0 aspirin 81 mg tablet,delayed release (DR/EC) 81 mg PO QDAY RF: 0 Discontinued amlodipine 10 mg tablet 10 mg PO QDAY RF: 0 Follow Up Plan Follow up with: Reynaldo Castañeda MD [Primary Care Provider] - Patient Disposition: Home, Self-Care Prognosis: Fair Overall status at discharge: patient is progressing back to baseline Discharge Orders: Discharge Order (Routine); Ordered 10/19/20 Ordered By: Gaurav Be
[2020-10-18] MEDS ORDERED: BENZOCAINE/MENTHOL 1 LOZENGE PO PRN (16:53)
[2020-10-18] MEDS ORDERED: BENZONATATE 100 MG CAPSULE PO PRN (16:53)
[2020-10-18] MEDS ORDERED: BENZONATATE 100 MG CAPSULE PO ONE (16:53)
[2020-10-18] MEDS ORDERED: DOXAZOSIN 1 MG TABLET PO SCH (21:00)
[2020-10-18] MEDS: ENOXAPARIN 30 MG/0.3 ML SYRINGE SQ SCH (21:33)
[2020-10-19] MEDS ORDERED: OMEPRAZOLE 20 MG CAPSULE PO SCH (07:30)
[2020-10-19] MEDS: 0.9 % SODIUM CHLORIDE 10 ML SYRINGE IV SCH ×2 (07:32→15:55)
[2020-10-19] MEDS: DOCUSATE SODIUM 100 MG CAPSULE PO SCH (07:33)
[2020-10-19] MEDS: BUDESONIDE FORMOTEROL INH SCH (07:33)
[2020-10-19] MEDS: ENOXAPARIN 30 MG/0.3 ML SYRINGE SQ SCH (08:24)
[2020-10-19] MEDS: METOPROLOL TARTRATE 50 MG TABLET PO SCH (08:24)
[2020-10-19] MEDS ORDERED: LOSARTAN 50 MG TABLET PO SCH (09:00)
[2020-10-19] MEDS ORDERED: ATORVASTATIN 20 MG TABLET PO SCH (09:00)
[2020-10-19] MEDS ORDERED: amLODIPine 5 MG TABLET PO SCH (09:00)
[2020-10-19] MEDS ORDERED: FUROSEMIDE 40 MG TABLET PO SCH (09:00)
[2020-10-19] MEDS ORDERED: ASPIRIN 81 MG TAB.CHEW PO SCH (09:00)
== END 2020-10-19 15:30 | disposition home or self-care (01) | DRG 291 ==
LOC: ED 05:48 → ICU 10:15 → MEDSUR 10-18 15:15
PROVIDERS: ADMIT Internal Medicine; ATTEND Internal Medicine